=== PATIENT | female | born 1985 | race Caucasian/White ===

== ENCOUNTER → 2017-04-23 | Outpatient (CLI) | payer MEDICAID ==
[~2017-04-23] MED LIST: ALPR.25 PO; AMOX875 PO; EXTR500C PO; IBUP800 PO; IBUP800T23 PO; TRAM50 PO
--- NOTE | 2017-04-24 23:45 | EKG ---
Date Performed: 04/23/2017 Time Performed: 14:46:40 PTAGE: 32 years EKG: Sinus rhythm . Normal ECG based on available leads NO PREVIOUS TRACING DOCTOR: Florentin Putnam Interpretating Date/Time 04/24/2017 23:41:53
== END ==
LOC: HCAV 14:36
PROVIDERS: ATTEND Psychiatry & Neurology Child & Adolescent Psychiatry
DX: F90.0 Attention-deficit hyperactivity disorder, predominantly inattentive type (principal)
CPT/HCPCS: 93005